=== PATIENT | female | born 1995 | race Caucasian/White ===

== ENCOUNTER 2024-11-14 23:44 | Emergency (ER) | payer OTHER ==
[2024-11-14 23:52] VITALS: BP 105/71; PULSE 89; RESP 18; TEMP 98; BMI 20.9
[2024-11-15 00:35] LABS: THROAT:GRP A STREP NOT DETECTED (NOTDETECTED)
[2024-11-15] MEDS ORDERED: DEXAMETHASONE SOD PHOSPHATE 10 MG/1 ML VIAL ONE (01:51)
[2024-11-15] MEDS ORDERED: AZITHROMYCIN 500 MG TABLET ONE (01:51)
[2024-11-15] MEDS: DEXAMETHASONE 4 MG TABLET (FP) PO ONE (01:52)
[2024-11-15] MEDS: AZITHROMYCIN 500 MG TABLET PO ONE (01:52)
== END 2024-11-15 01:53 | disposition home or self-care (01) ==
LOC: JER 23:44
DX: J18.9 Pneumonia, unspecified organism (principal); R05.1 Acute cough; R50.9 Fever, unspecified; R07.89 Other chest pain; R06.02 Shortness of breath; R09.89 Other specified symptoms and signs involving the circulatory and respiratory systems
CPT/HCPCS: 0241U-QW; 71046-TC-FY; 84703; 87651; 99284-25